=== PATIENT | female | born 1960 | race Caucasian/White ===

== ENCOUNTER 2019-07-26 09:07 | Emergency (ER) | payer MEDICAID ==
--- NOTE | 2019-07-26 09:37 | EDM.PDOC ---
ED HPI GENERAL MEDICAL PROBLEM - General Chief Complaint: Headache Stated Complaint: HEADACHE Time Seen by Provider: 07/26/19 09:36 Source of Information: Reports: Patient History Limitations: Reports: No Limitations - History of Present Illness INITIAL COMMENTS - FREE TEXT/NARRATIVE: pt arrived with a headache, vertigo and she had a syncopal episode. She has been at [facility] since July 12. Pt had been usinfg thc. She did occasionally use meth, Pt has a long history of vertigo since 2013. She has not eaten or drank much in the last 2 days because of the vertigo. Onset: Today, Sudden Duration: Hour(s):, Other (pt is having severe headache. ) Location: Reports: Head, Generalized, Other (pt passed out. ) Associated Symptoms: Reports: Other (pt is having some severe left knee pain. ) frontal headache Pain Score (Numeric/FACES): 9 - Related Data Allergies Allergy/AdvReac Type Severity Reaction Status Date / Time doxycycline Allergy Vomiting Verified 07/26/19 09:09 prochlorperazine Allergy Vomiting Verified 07/26/19 09:09 [From Compazine] Home Meds: Home Meds Cetirizine [ZyrTEC] 10 mg PO DAILY 07/26/19 [History] FLUoxetine HCl [Prozac] 20 mg PO DAILY 07/26/19 [History] Metoprolol Tartrate [Lopressor] 50 mg PO BID 07/26/19 [History] Omeprazole 40 mg PO BIDAC 07/26/19 [History] Past Medical History HEENT History: Reports: Other (See Below) Other HEENT History: vertigo Cardiovascular History: Reports: Hypertension Gastrointestinal History: Reports: GERD, PUD Psychiatric History: Reports: Addiction, Anxiety, Depression - Past Surgical History Cardiovascular Surgical History: Reports: None Female Surgical History: Reports: Section, Hysterectomy Musculoskeletal Surgical History: Reports: Arthroscopic Knee Social & Family History - Tobacco Use Smoking Status *Q: Never Smoker - Recreational Drug Use Recreational Drug Type: Reports: Marijuana/Hashish, Methamphetamine ED ROS GENERAL - Review of Systems Review Of Systems: See Below Constitutional: Reports: Weakness, Fatigue, Other (pt had a syncopal episode. ) HEENT: Reports: No Symptoms Respiratory: Reports: No Symptoms Cardiovascular: Reports: No Symptoms Endocrine: Reports: No Symptoms GI/Abdominal: Reports: Nausea, Vomiting : Reports: No Symptoms Musculoskeletal: Reports: No Symptoms Skin: Reports: No Symptoms Neurological: Reports: Headache, Other (vertigo) Psychiatric: Reports: Anxiety - Physical Exam Exam: See Below Text/Narrative:: pt arrived after passing out at [facility]. She started having vertigo yesterday and was nauseated and has not eaten of drank much in the lasst 2 days. She has a long history of vertigo. Exam Limited By: No Limitations General Appearance: Alert, Anxious, Moderate Distress, Other (pt has a severe headache after the fall. pupils are equal and reactive. ) Ears: Normal TMs Nose: Normal Inspection Throat/Mouth: Normal Inspection Head Exam: Atraumatic Neck: Normal Inspection Respiratory/Chest: No Respiratory Distress Cardiovascular: Regular Rate, Rhythm GI/Abdominal: Soft, Non-Tender (Female) Exam: Deferred Rectal (Female) Exam: Deferred Neuro Exam (Abbreviated): Alert, Oriented, Normal Cognition Back Exam: Normal Inspection Extremities: Normal Inspection Psychiatric: Normal Affect Course - Vital Signs Last Recorded V/S: Last Vital Signs Temp 36.8 C 07/26/19 09:27 Pulse 64 07/26/19 10:20 Resp 16 07/26/19 10:20 BP 120/87 07/26/19 10:20 Pulse Ox 98 07/26/19 10:20 Orthostatic Blood Pressure [ 120/87 Standing] Orthostatic Blood Pressure [ 133/86 Sitting] Orthostatic Blood Pressure [ 133/85 Supine] - Orders/Labs/Meds Orders: Active Orders 24 hr Category Date Time Status Orthostatic Vital Signs [RC] ASDIRECTED Care 07/26/19 09:54 Active Knee 3V Lt [CR] Stat Exams 07/26/19 09:58 Taken Sodium Chloride 0.9% [Normal Saline] 1,000 ml Med 07/26/19 10:00 Active IV ASDIRECTED Sodium Chloride 0.9% [Normal Saline] 1,000 ml Med 07/26/19 10:30 Active IV ASDIRECTED Medication Orders Sodium Chloride (Normal Saline) 1,000 mls @ 999 mls/hr IV ASDIRECTED MAZIN Last Admin: 07/26/19 10:39 Dose: 999 mls/hr Sodium Chloride (Normal Saline) 1,000 mls @ 999 mls/hr IV ASDIRECTED MAZIN Last Admin: 07/26/19 12:02 Dose: 999 mls/hr Labs: Laboratory Tests 07/26/19 07/26/19 07/26/19 Range/Units 10:04 10:04 10:14 WBC 8.6 (4.5-11.0) K/uL RBC 4.72 (3.30-5.50) M/uL Hgb 13.7 (12.0-15.0) g/dL Hct 42.0 (36.0-48.0) % MCV 89 (80-98) fL MCH 29 (27-31) pg MCHC 33 (32-36) % Plt Count 482 H (150-400) K/uL Neut % (Auto) 51 (36-66) % Lymph % (Auto) 35 (24-44) % [place] % (Auto) 9 H (2-6) % Eos % (Auto) 3 (2-4) % Baso % (Auto) 2 H (0-1) % Sodium 138 L (140-148) mmol/L Potassium 4.2 (3.6-5.2) mmol/L Chloride 101 (100-108) mmol/L Carbon Dioxide 30 (21-32) mmol/L Anion Gap 11.2 (5.0-14.0) mmol/L BUN 13 (7-18) mg/dL Creatinine 1.0 (0.6-1.0) mg/dL Est Cr Clr Drug Dosing 44.58 mL/min Estimated GFR (MDRD) 57 L (>60) Glucose 112 H (74-106) mg/dL Calcium 9.1 (8.5-10.1) mg/dL Total Bilirubin 0.7 (0.2-1.0) mg/dL AST 14 L (15-37) U/L ALT 22 (12-78) U/L Alkaline Phosphatase 88 (46-116) U/L Total Protein 7.3 (6.4-8.2) g/dL Albumin 3.8 (3.4-5.0) g/dL Globulin 3.5 (2.3-3.5) g/dL Albumin/Globulin Ratio 1.1 L (1.2-2.2) Urine Color Yellow (YELLOW) Urine Appearance Clear (CLEAR) Urine pH 6.5 (5.0-8.0) Ur Specific [place] 1.025 (1.008-1.030) Urine Protein Negative (NEGATIVE) mg/dL Urine Glucose (UA) Negative (NEGATIVE) mg/dL Urine Ketones Negative (NEGATIVE) mg/dL Urine Occult Blood Negative (NEGATIVE) Urine Nitrite Negative (NEGATIVE) Urine Bilirubin Negative (NEGATIVE) Urine Urobilinogen 0.2 (0.2-1.0) EU/dL Ur Leukocyte Esterase Small H (NEGATIVE) Urine RBC 0-5 (0-5) Urine WBC 5-10 H (0-5) Ur Epithelial Cells Many Amorphous Sediment Few Urine Bacteria Few Urine Mucus Moderate Meds: Medications Generic Name Dose Route Start Last Admin Trade Name Freq PRN Reason Stop Dose Admin Sodium Chloride 1,000 mls @ 999 mls/hr 07/26/19 10:00 07/26/19 10:39 Normal Saline IV 999 mls/hr ASDIRECTED MAZIN Administration Sodium Chloride 1,000 mls @ 999 mls/hr 07/26/19 10:30 07/26/19 12:02 Normal Saline IV 999 mls/hr ASDIRECTED MAZIN Administration Discontinued Medications Generic Name Dose Route Start Last Admin Trade Name Freq PRN Reason Stop Dose Admin Diphenhydramine HCl 25 mg 07/26/19 11:46 07/26/19 12:02 Benadryl IVPUSH 07/26/19 11:47 25 mg ONETIME ONE Administration Hydromorphone HCl 0.5 mg 07/26/19 11:45 07/26/19 12:02 Dilaudid IVPUSH 07/26/19 11:46 0.5 mg ONETIME ONE Administration Ketorolac Tromethamine 30 mg 07/26/19 10:41 07/26/19 10:56 Toradol IVPUSH 07/26/19 10:42 30 mg ONETIME ONE Administration Lorazepam 0.5 mg 07/26/19 10:40 07/26/19 10:46 Ativan IVPUSH 07/26/19 10:41 0.5 mg ONETIME ONE Administration Meclizine HCl 25 mg 07/26/19 10:29 07/26/19 10:41 Antivert PO 07/26/19 10:30 25 mg ONETIME ONE Administration Ondansetron HCl 4 mg 07/26/19 09:59 07/26/19 10:06 Zofran IVPUSH 07/26/19 10:00 4 mg ONETIME ONE Administration Ondansetron HCl 4 mg 07/26/19 10:39 07/26/19 10:51 Zofran IVPUSH 07/26/19 10:40 4 mg ONETIME ONE Administration - Re-Assessments/Exams Free Text/Narrative Re-Assessment/Exam: 07/26/19 11:19 pt arrived after she had a syncopal episode at [facility]. She had been experiencing vertigo. A head scan was done and she was found to have chronic changes but there was a 5 mm colloid cyst which is hyperdense. It is reccommended that this be followed up with [facility] of the head. 07/26/19 11:22 pt was given 2 liters of fluid, zoforan and she was treated for her headache with torodol, and ativan. Departure - Departure Time of Disposition: 12:59 Disposition: Home, Self-Care 01 Condition: Fair Clinical Impression: Syncope, Dehydration, Vertigo - Discharge Information Referrals: PCP,None [Primary Care Provider] - Forms: ED Department Discharge Care Plan Goals: push fluids , tylenol for pain, tramodol 50 m q6h prn for headache pain # 10, see regular Dr regarding getting a MRI done, send a copy of the cat scan report with the pt. Sepsis Event Note - Evaluation Sepsis Screening Result: No Definite Risk - Focused Exam Vital Signs: Vital Signs Temp Pulse Resp BP Pulse Ox 07/26/19 10:20 64 16 120/87 98 07/26/19 09:27 36.8 C 62 16 138/94 H 97 07/26/19 09:22 36.8 C 62 16 138/94 H 97 Date Exam was Performed: 07/26/19 Time Exam was Performed: 12:59 - My Orders Last 24 Hours: My Active Orders 07/26/19 09:54 Orthostatic Vital Signs [RC] ASDIRECTED 07/26/19 09:58 Knee 3V Lt [CR] Stat 07/26/19 10:00 Sodium Chloride 0.9% [Normal Saline] 1,000 ml IV ASDIRECTED 07/26/19 10:30 Sodium Chloride 0.9% [Normal Saline] 1,000 ml IV ASDIRECTED - Assessment/Plan Last 24 Hours: My Active Orders 07/26/19 09:54 Orthostatic Vital Signs [RC] ASDIRECTED 07/26/19 09:58 Knee 3V Lt [CR] Stat 07/26/19 10:00 Sodium Chloride 0.9% [Normal Saline] 1,000 ml IV ASDIRECTED 07/26/19 10:30 Sodium Chloride 0.9% [Normal Saline] 1,000 ml IV ASDIRECTED
[2019-07-26] MEDS ORDERED: Ondansetron 4 MG/2 ML SDV IVPUSH ONE ×2 (09:59→10:39)
[2019-07-26] MEDS ORDERED: Sodium Chloride 0.9% 1,000 ML IV SCH ×2 (10:00→10:30)
[2019-07-26] MEDS ORDERED: Meclizine 25 MG Tab PO ONE (10:29)
[2019-07-26] MEDS ORDERED: LORazepam 2 MG/ML SDV IVPUSH ONE (10:40)
[2019-07-26] MEDS ORDERED: Ketorolac 30 MG/ML SDV IVPUSH ONE (10:41)
--- NOTE | 2019-07-26 10:55 | CRLCT ---
INDICATION: 58-year-old female, headache. TECHNIQUE: CT head without i.v. contrast. COMPARISON: None FINDINGS: CSF spaces: Within normal limits for age. Lateral ventricles are normal in caliber. Round, hyperdense focus at the foramina of [place] on series 2, image 16, measuring 4.8 mm in transverse dimension, hyperdense colloid cyst. Brain parenchyma: The brain parenchyma is normal in appearance with preservation of the kidd-white differentiation. No sign of mass, hemorrhage, or midline shift seen. Skull base and calvarium: There is moderate mucosal thickening of the imaged ethmoid sinuses. The mastoid air cells are clear. The visualized orbits are grossly unremarkable. No skull fractures are seen. IMPRESSION: 1. No acute intracranial abnormality or hydrocephalus. 2. Approximately 5 mm hyperdense colloid cyst. Consider correlation with contrast enhanced brain MRI. 3. Moderate degree of chronic ethmoid sinus disease. Dictated by Fernando Rocha MD @ 07/26/2019 10:55:09 AM Please note that all CT scans at this facility use dose modulation, iterative reconstruction, and/or weight-based dosing when appropriate to reduce radiation dose to as low as reasonably achievable. Dictated by: Fernando Rocha MD @ 07/26/2019 10:55:19 (Electronically Signed)
[2019-07-26] MEDS ORDERED: HYDROmorphone 0.5 MG/0.5 ML Syringe IVPUSH ONE (11:45)
[2019-07-26] MEDS ORDERED: diphenhydrAMINE 50 MG/ML SDV IVPUSH ONE (11:46)
--- NOTE | 2019-07-27 10:26 | CR ---
Knee 3V Lt CLINICAL HISTORY: Fall FINDINGS: No acute fracture or dislocation is noted. There are no osseous lesions. Articular surfaces are smooth Impression: Negative
== END 2019-07-26 13:17 | disposition home or self-care (01) ==
LOC: JP.ED 09:07
DX: E86.0 Dehydration (principal); I10 Essential (primary) hypertension; K21.9 Gastro-esophageal reflux disease without esophagitis; F41.9 Anxiety disorder, unspecified; F32.9 Major depressive disorder, single episode, unspecified; Z79.899 Other long term (current) drug therapy; Z88.1 Allergy status to other antibiotic agents; Z88.8 Allergy status to other drugs, medicaments and biological substances
CPT/HCPCS: 36415; 70450; 73562; 80053; 81001; 85025; 96361; 96374; 96375; 96376; 99284; A9270; J1170; J1200; J1885; J2060; J2405; J7030